=== PATIENT | male | born 1975 | race Native Hawaiian/Other Pacific Islander ===

== ENCOUNTER 2020-10-01 14:09 | Emergency (ER) | payer OTHER ==
[~2020-10-01] VITALS: Ht 190.5 cm; Wt 92.3 kg
[2020-10-01] MEDS ORDERED: meTOprolol 5 MG/5 ML (LOPRESSOR) VIAL IV STA (14:20)
[2020-10-01] MEDS ORDERED: NS IV 1000 ML 1,000 ML IV STA (14:20)
[2020-10-01] MEDS ORDERED: NITROGLYCERIN 2% OINT 1 GM UNIT DOSE PACKET TOP STA (14:20)
--- NOTE | 2020-10-01 14:28 | ED Chest Pain ---
General Stated Complaint: CHEST PAIN Source: patient History of Present Illness Date Seen by Provider: Oct 01, 2020 Time Seen by Provider: 14:11 Initial Comments 44-year-old male presenting with complaints of right-sided chest pain since last night. He states that the pain is worse when he lays down or takes a deep breath. He has a history of prior MN with stent placement in 2019. He does have a history of using methamphetamines and is currently incarcerated. He states it has been more than 6 months since he had been on any of his blood pressure medications other than taking aspirin. He started having pain last night and states that it feels similar to when he had a prior MN. Previously he had waited several days before telling anyone. He decided mention that he was having the chest pain today after it had been constant since last night. Severity/Quality: severe, sharp Location: other (right side of chest) Activities at Onset: none Prior CP/Workup: angina, cardiac cath, heart attack ASA po WHARF TALLY CLERK: Yes (81 mg aspirin daily) NTG SL WHARF TALLY CLERK: No Associated Symptoms: No abdominal pain, No back pain, No diaphoresis, No dizziness, No edema, No fatigue, No fever/chills, No headache, No heartburn, No nausea/vomiting, No rash, No shortness of breath, No swelling/lump in chest, No syncope, No weakness Allergies and Home Medications Allergies Coded Allergies: No Known Drug Allergies (Unverified , 10/01/20) Patient Home Medication List Home Medication List Reviewed: Yes Review of Systems Review of Systems Constitutional: No chills, No fever EENTM: No Symptoms Reported Respiratory: No Symptoms Reported Cardiovascular: See HPI, Chest Pain Gastrointestinal: No Symptoms Reported Genitourinary: No Symptoms Reported Musculoskeletal: no symptoms reported Skin: no symptoms reported Psychiatric/Neurological: No Symptoms Reported Endocrine: No Symptoms Reported Hematologic/Lymphatic: No Symptoms Reported Past Vzheafg-Aqexpa-Qzhtbx Hx Past Med/Social Hx: Reviewed Nursing Past Med/Soc Hx Past Medical History Surgeries: Yes Coronary Stent Cardiac: Yes Coronary Artery Disease, Hypertension Endocrine: Yes Diabetes, Non-Insulin dep Physical Exam Vital Signs Vital Signs - First Documented Capillary Refill : Height, Weight, BMI Height: '" Weight: lbs. oz. kg; BMI Method: General Appearance: No Apparent Distress, WD/WN Neck: Full Range of Motion, Normal Inspection, Non Tender, Supple; No Carotid Bruit Respiratory: Chest Non Tender, Lungs Clear, Normal Breath Sounds, No Accessory Muscle Use, No Respiratory Distress Cardiovascular: Regular Rate, Rhythm, Normal Peripheral Pulses, Other (frequent PVCs) Gastrointestinal: No Pulsatile Mass, Non Tender, Soft Rectal: Deferred Extremity: Normal Capillary Refill, No Pedal Edema Neurologic/Psychiatric: Alert, Oriented x3, No Motor/Sensory Deficits, ambulance attendant II- XII Norm as Tested Skin: Normal Color, Warm/Dry Progress/Results/Core Measures Results/Orders Lab Results Laboratory Tests Test 10/01/20 14:22 Range/Units White Blood Count 8.4 4.3-11.0 10^3/uL Red Blood Count 5.12 4.35-5.85 10^6/uL Hemoglobin 16.1 13.3-17.7 G/DL Hematocrit 45 40-54 % Mean Corpuscular Volume 89 80-99 FL Mean Corpuscular Hemoglobin 31 25-34 PG Mean Corpuscular Hemoglobin Concent 36 32-36 G/DL Red Cell Distribution Width 12.2 10.0-14.5 % Platelet Count 365 130-400 10^3/uL Mean Platelet Volume 9.2 7.4-10.4 FL Immature Granulocyte % (Auto) 1 % Neutrophils (%) (Auto) 62 42-75 % Lymphocytes (%) (Auto) 26 12-44 % Monocytes (%) (Auto) 9 0-12 % Eosinophils (%) (Auto) 1 0-10 % Basophils (%) (Auto) 1 0-10 % Neutrophils # (Auto) 5.2 1.8-7.8 X 10^3 Lymphocytes # (Auto) 2.2 1.0-4.0 X 10^3 Monocytes # (Auto) 0.8 0.0-1.0 X 10^3 Eosinophils # (Auto) 0.1 0.0-0.3 10^3/uL Basophils # (Auto) 0.8 H 0.0-0.1 10^3/uL Immature Granulocyte # (Auto) 0.1 0.0-0.1 10^3/uL Prothrombin Time 12.8 12.2-14.7 SEC INR Comment 0.9 0.8-1.4 Activated Partial Thromboplast Time 25 24-35 SEC Sodium Level 135 135-145 MMOL/L Potassium Level 4.3 3.6-5.0 MMOL/L Chloride Level 97 L 98-107 MMOL/L Carbon Dioxide Level 26 21-32 MMOL/L Anion Gap 12 5-14 MMOL/L Blood Urea Nitrogen 8 7-18 MG/DL Creatinine 0.68 0.60-1.30 MG/DL Estimat Glomerular Filtration Rate > 60 BUN/Creatinine Ratio 12 Glucose Level 215 H 70-105 MG/DL Calcium Level 9.5 8.5-10.1 MG/DL Corrected Calcium 8.5-10.1 MG/DL Magnesium Level 1.9 1.6-2.4 MG/DL Total Bilirubin 0.5 0.1-1.0 MG/DL Aspartate Amino Transf (AST/SGOT) 11 5-34 U/L Alanine Aminotransferase (ALT/SGPT) 11 0-55 U/L Alkaline Phosphatase 111 40-136 U/L Troponin I < 0.30 <0.30 NG/ML Pro-B-Type Natriuretic Peptide 286.1 H <75.0 PG/ML Total Protein 7.7 6.4-8.2 GM/DL Albumin 4.7 H 3.2-4.5 GM/DL Lipase 25 8-78 U/L My Orders Orders - MIKE GONZALEZ MD Cbc With Automated Diff (10/01/20 14:20) Magnesium (10/01/20 14:20) Chest 1 View Ap/Pa Only (10/01/20 14:20) Ekg Tracing (10/01/20 14:20) Comprehensive Metabolic Panel (10/01/20 14:20) Protime With Inr (10/01/20 14:20) Partial Thromboplastin Time (10/01/20 14:20) O2 (10/01/20 14:20) Monitor-Rhythm Ecg Trace Only (10/01/20 14:20) Aspirin Chewable Tablet (Baby Aspirin Ch (10/01/20 14:30) Ed Iv/Invasive Line Start (10/01/20 14:20) Lipase (10/01/20 14:20) Troponin I Fs (10/01/20 14:20) Probnp Fs (10/01/20 14:20) Ns Iv 1000 Ml (Sodium Chloride 0.9%) (10/01/20 14:20) Metoprolol Tartrate Injection (Lopressor (10/01/20 14:20) Nitroglycerin Ointment (Nitrobid Ointme (10/01/20 14:20) Ct Angio Chest W (10/01/20 15:15) Ketorolac Injection (Toradol Injection) (10/01/20 15:15) Iohexol Injection (Omnipaque 350 Mg/Ml 1 (10/01/20 15:30) Received Contrast (Hold Metformin- Contr (10/01/20 15:30) Sodium Chloride Flush (Catheter Flush Sy (10/01/20 15:30) Ns (Ivpb) (Sodium Chloride 0.9% Ivpb Bag (10/01/20 15:30) Medications Given in ED Current Medications Medications Dose Ordered Sig/Jessica Route Start Time Stop Time Status Last Admin Dose Admin Aspirin 324 mg ONCE ONCE PO 10/01/20 14:30 10/01/20 14:31 DC 10/01/20 14:30 324 MG Iohexol 100 ml ONCE ONCE IV 10/01/20 15:30 10/01/20 15:31 DC 10/01/20 15:44 100 ML Sodium Chloride 10 ml NEEDED PRN IV 10/01/20 15:30 10/01/20 17:20 DC 10/01/20 15:44 10 ML Sodium Chloride 100 ml ONCE ONCE IV 10/01/20 15:30 10/01/20 15:31 DC 10/01/20 15:44 100 ML Vital Signs/I&O 10/01/20 10/01/20 10/01/20 10/01/20 14:10 14:10 15:21 17:11 Temp 36.9 36.9 36.7 Pulse 89 80 Resp 16 16 B/P (MAP) 150/129 (136) 121/95 (136) Pulse Ox 99 99 O2 Delivery Room Air Room Air Room Air Progress Progress Note #1: Progress Note Give a full 324 mg of aspirin, single dose of metoprolol 5 mg IV, nitroglycerin paste to help with blood pressure and chest pain. The initial electrocardiogram does not show any acute ST elevation. He reports having diabetes and not taking medicine for more than 6 months as well. Will evaluate his labs and chemistry. On cardiac telemetry monitoring he has sinus rhythm with frequent PVCs and a heart rate in the 80s. Differential diagnosis includes myocardial infarction, pneumonia, pulmonary embolism, hypertensive urgency, electrolyte imbalance Progress Note #2: Time: 15:08 Progress Note Chest x-ray on my review of 1 view film shows some rotation but no infiltrate, effusion or cardiomegaly. The electrocardiogram does not show any acute ST e levation. The labs are stable without acute elevation of his troponin or signs of acute MN. His glucose was a little elevated at 215. He had reported that his symptoms were improved and stated his pain going from 8 or 9 down to 4 or 5. Will add on a CT angiogram of the chest. Encourage the [facility] to investigate blood pressure and diabetic medications for the patient. Especially since he mentions that he is having some numbness and decreased sensation in his toes. It sounds like he is getting some neuropathy which could be related to blood pressure as well as diabetes. Progress Note #3: Time: 16:[address] angiogram read out as no PE or acute process. Will [facility] back to penit[facility]iary and encourage pt and staff there to get him back on medicine for blood pressure and diabetes. Follow a low fat, low sodium, diabetic diet. As he had no elevation of troponin after having pain for over 16 hours and it was right sided this may be due to blood pressure, dm, pleurisy, gastritis, chest wall pain, chest wall strain. Encourage follow up with clinic or cardiology for continued concerns and if not able to get started on medicines. Initial ECG Impression Date: Oct 01, 2020 Initial ECG Impression Time: 14:12 Initial ECG Rate: 83 Initial ECG Rhythm: Normal Sinus Initial ECG Comparisson: No Previous ECG Available Comment Sinus rhythm with a heart rate of 83 bpm. Multiple premature ventricular complexes. DC interval 207 ms. 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 Nonspecific lateral T wave changes. QT interval 339 ms with a QTc interval 399 ms. There is no acute ST elevation. There is no prior tracing available for comparison. Diagnostic Imaging Diagonstic Imaging: Xray Plain Films/CT/US/NM/MRI: chest Comments NAME: EMMA LUNA [facility] REC#: [id number] PT STATUS: REG ER : 1975 PHYSICIAN: MIKE GONZALEZ MD ADMIT DATE: 10/01/20/ER FS Signed Date of Exam:10/01/20 CHEST 1 VIEW AP/PA ONLY CHEST 1 VIEW AP/PA ONLY Indication: Chest pain. Comparison: None available. Findings: No focal airspace disease in the visualized lungs. Please note that the posterior lower lobes are poorly evaluated by portable radiography. No pleural effusion or pneumothorax. Normal cardiomediastinal silhouette. Impression: 1. No acute cardiopulmonary process by portable radiography. Dictated by: Dictated on workstation # [id number] Dict: 10/01/20 1529 Trans: 10/01/20 1532 [facility] [id number] Interpreted by: LINDA DUNBAR MD Electronically signed by: LINDA DUNBAR MD 10/01/20 1532 Diagonstic Imaging: CT Plain Films/CT/US/NM/MRI: chest Comments NAME: EMMA LUNA [facility] REC#: [id number] PT STATUS: REG ER : 1975 PHYSICIAN: MIKE GONZALEZ MD ADMIT DATE: 10/01/20/ER FS Draft Date of Exam:10/01/20 CT ANGIO CHEST W PROCEDURE: CT angiography of the chest with contrast. TECHNIQUE: Multiple contiguous axial images were obtained through the chest after uneventful bolus administration of intravenous contrast. 3D reconstructed CTA MIP acquisitions were also performed. Auto Exposure Controls were utilized during the CT exam to meet ALARA standards for radiation dose reduction. INDICATION: Right-sided chest pain and hypertension. COMPARISON: No prior CT studies are available for comparison. The left hemidiaphragm is elevated. Pulmonary arterial system is without evidence of thromboembolism. No filling defects are seen within central, lobar or segmental branches. Thoracic aorta is normal caliber. No pericardial or pleural fluid is detected. No pulmonary infiltrates, nodules or masses are seen. Upper abdomen is unremarkable. IMPRESSION: No evidence of pulmonary embolism. Dictated on workstation # [id number] Dict: 10/01/20 1552 Trans: 10/01/20 1655 [facility] [id number] Interpreted by: DEANDRA WINCHESTER MD Electronically signed by: Departure Impression Primary Impression: Hypertension Qualified Codes: I10 - Essential (primary) hypertension Additional Impressions: Diabetes mellitus type 2, uncontrolled Qualified Codes: E11.65 - Type 2 diabetes mellitus with hyperglycemia Pleuritic chest pain Right-sided chest pain Disposition: 01 HOME, SELF-CARE Condition: Stable Departure-Patient Inst. Decision time for Depature: 17:03 Referrals: [facility] Patient Instructions: Chest Pain, Adult ED, Diabetes and Diet, High Blood Pressure (DC), DASH Diet Add. Discharge Instructions: Check with staff at pen[facility] and [facility] if needed about blood pressure and diabetes. Follow a low sodium, low fat, diabetic diet. Continue to take aspirin 81 mg daily MIKE GONZALEZ MD Oct 01, 2020 14:28
[2020-10-01 14:30] LABS: HEMATOCRIT 45 % (40-54); HEMOGLOBIN 16.1 G/DL (13.3-17.7); MEAN CORPUSCULAR HEMOGLOBIN 31 PG (25-34); MEAN CORPUSCULAR HGB CONC 36 G/DL (32-36); MEAN CORPUSCULAR VOLUME 89 FL (80-99); MEAN PLATELET VOLUME 9.2 FL (7.4-10.4); NEUTROPHILS % (AUTO) 62 % (42-75); PLATELET COUNT 365 10^3/uL (130-400); WHITE BLOOD COUNT 8.4 10^3/uL (4.3-11.0)
[2020-10-01] MEDS ORDERED: ASPIRIN 81 MG CHEW (CHILDREN'S ASA) PO ONE (14:30)
[2020-10-01 14:31] LABS: BASOPHILS # (AUTO) 0.8 10^3/uL (0.0-0.1); BASOPHILS % (AUTO) 1 % (0-10); EOSINOPHILS # (AUTO) 0.1 10^3/uL (0.0-0.3); EOSINOPHILS % (AUTO) 1 % (0-10); LYMPHOCYTES # (AUTO) 2.2 X 10^3 (1.0-4.0); LYMPHOCYTES % (AUTO) 26 % (12-44); MONOCYTES # (AUTO) 0.8 X 10^3 (0.0-1.0); MONOCYTES % (AUTO) 9 % (0-12); NEUTROPHILS # (AUTO) 5.2 X 10^3 (1.8-7.8)
[2020-10-01 14:42] LABS: INR 0.9 (0.8-1.4); PROTHROMBIN TIME PATIENT 12.8 SEC (12.2-14.7)
[2020-10-01 15:02] LABS: ALANINE AMINOTRANSFERASE 11 U/L (0-55); ALKALINE PHOSPHATASE 111 U/L (40-136); BILIRUBIN,TOTAL 0.5 MG/DL (0.1-1.0); BUN/CREATININE RATIO 12; CALCIUM 9.5 MG/DL (8.5-10.1); CARBON DIOXIDE 26 MMOL/L (21-32); CHLORIDE 97 MMOL/L (98-107); CREATININE SERUM 0.68 MG/DL (0.60-1.30); GFR ESTIMATED > 60; GLUCOSE 215 MG/DL (70-105); MAGNESIUM 1.9 MG/DL (1.6-2.4); POTASSIUM 4.3 MMOL/L (3.6-5.0); SODIUM 135 MMOL/L (135-145); TOTAL PROTEIN 7.7 GM/DL (6.4-8.2)
[2020-10-01 15:03] LABS: ALBUMIN 4.7 GM/DL (3.2-4.5); LIPASE 25 U/L (8-78)
[2020-10-01] MEDS ORDERED: KETOROLAC 30 MG/ML VIAL IVP STA (15:15)
[2020-10-01] MEDS ORDERED: NS 100 ML (IVPB) BAG IV ONE (15:30)
[2020-10-01] MEDS ORDERED: IOHEXOL 350 MG/ML 100 ML (OMNIPAQUE 350) VIAL IV ONE (15:30)
[2020-10-01] MEDS ORDERED: CATHETER FLUSH 10 ML SYR IV PRN (15:30)
[2020-10-01] MEDS ORDERED: HOLD METFORMIN - RECEIVED CONTRAST 20 ML VIAL IV SCH (15:30)
--- NOTE | 2020-10-01 15:34 | Diagnostic Imaging Report ---
CHEST 1 VIEW AP/PA ONLY Indication: Chest pain. Comparison: None available. Findings: No focal airspace disease in the visualized lungs. Please note that the posterior lower lobes are poorly evaluated by portable radiography. No pleural effusion or pneumothorax. Normal cardiomediastinal silhouette. Impression: 1. No acute cardiopulmonary process by portable radiography. Dictated by: Dictated on workstation # [id number]
--- NOTE | 2020-10-01 16:55 | Diagnostic Imaging Report ---
PROCEDURE: CT angiography of the chest with contrast. TECHNIQUE: Multiple contiguous axial images were obtained through the chest after uneventful bolus administration of intravenous contrast. 3D reconstructed CTA MIP acquisitions were also performed. Auto Exposure Controls were utilized during the CT exam to meet ALARA standards for radiation dose reduction. INDICATION: Right-sided chest pain and hypertension. COMPARISON: No prior CT studies are available for comparison. The left hemidiaphragm is elevated. Pulmonary arterial system is without evidence of thromboembolism. No filling defects are seen within central, lobar or segmental branches. Thoracic aorta is normal caliber. No pericardial or pleural fluid is detected. No pulmonary infiltrates, nodules or masses are seen. Upper abdomen is unremarkable. IMPRESSION: No evidence of pulmonary embolism. Dictated by: Dictated on workstation # [id number]
[2020-10-01 17:11] VITALS: BP 121/95
== END 2020-10-01 17:11 | disposition home or self-care (01) ==
LOC: ER FS 14:12
DX: I10 Essential (primary) hypertension (principal); E11.65 Type 2 diabetes mellitus with hyperglycemia; R07.81 Pleurodynia; R07.9 Chest pain, unspecified
CPT/HCPCS: 36415; 71045; 71275; 80053; 83690; 83735; 83880; 84484; 85025; 85610; 85730; 93005; 93041